=== PATIENT | female | born 1950 | race Asian ===

== ENCOUNTER 2020-09-13 17:52 | Inpatient (IN) | payer MEDICARE ==
[2020-09-13 18:16] VITALS: BMI 30.2
[2020-09-13] MEDS ORDERED: SODIUM CHLORIDE 1,000 ML IV STA (18:43)
[2020-09-13 19:33] LABS: EOS % 13.4 % (0-4.5); HEMATOCRIT 39.6 % (32.4-45.2); HEMOGLOBIN 12.8 GM/dL (10.7-15.3); LYMPH % 44.6 % (8-40); MCH 24.4 pg (25.7-33.7); MCHC 32.3 g/dl (32.0-36.0); MEAN CELL VOLUME 75.6 fl (80-96); MEAN PLT VOLUME 8.1 fl (7.5-11.1); MONO % 5.7 % (3.8-10.2); NEUT % 35.3 % (42.8-82.8); PLATELET COUNT 273 10^3/uL (134-434); RBC 5.23 M/mm3 (3.60-5.2); RDW 17.1 % (11.6-15.6); VENOUS BASE EXCESS -0.7 mmol/L (-2-2); VENOUS O2 SATURATION 70.2 % (70-80); VENOUS PCO2 45.6 mmHg (38-52); VENOUS PH 7.358 (7.310-7.410); WHITE BLOOD COUNT 9.9 K/mm3 (4.0-10.0)
[2020-09-13 20:06] LABS: PH,URINE 5.5 (5.0-8.0); URINE APPEARANCE CLEAR; URINE BILIRUBIN NEGATIVE (NEGATIVE); URINE COLOR YELLOW; URINE GLUCOSE (UA) 3+ (NEGATIVE); URINE KETONE NEGATIVE (NEGATIVE); URINE LEUK ESTERASE NEGATIVE (NEGATIVE); URINE NITRITE NEGATIVE (NEGATIVE); URINE PROTEIN NEGATIVE (NEGATIVE); URINE UROBILINOGEN 0.2 mg/dL (0.2-1.0)
[2020-09-13 20:15] LABS: ALBUMIN 3.8 g/dl (3.4-5.0)
[2020-09-13 20:16] LABS: CHLORIDE 105 mmol/L (98-107); SODIUM 139 mmol/L (136-145)
[2020-09-13 20:18] LABS: PHOSPHOROUS 3.8 mg/dL (2.5-4.9)
[2020-09-13 20:20] LABS: BILIRUBIN,TOTAL 0.2 mg/dL (0.2-1); TOT PROT 7.6 g/dl (6.4-8.2)
[2020-09-13 20:21] LABS: ALK PHOS 110 U/L (45-117)
[2020-09-13 20:22] LABS: ANION GAP 9 MMOL/L (8-16); CALCIUM 9.1 mg/dL (8.5-10.1); CO2 24 mmol/L (21-32); GLUCOSE,RANDOM 181 mg/dL (74-106); MAGNESIUM 2.2 mg/dL (1.8-2.4)
[2020-09-13 20:35] LABS: SGPT/ALT 29 U/L (13-61)
[2020-09-13 20:43] LABS: SGOT/AST 31 U/L (15-37)
[2020-09-13 20:55] LABS: N-TERMINAL BNP 34.5 pg/ml (5-125)
[2020-09-14] MEDS ORDERED: ACETAMINOPHEN 325 MG TABLET (FP) ONE (06:23)
[2020-09-14 06:26] LABS: BASO % 1.1 % (0-2.0); EOS % 15.7 % (0-4.5); HEMATOCRIT 39.2 % (32.4-45.2); HEMOGLOBIN 12.2 GM/dL (10.7-15.3); LYMPH % 43.1 % (8-40); MCH 23.9 pg (25.7-33.7); MCHC 31.1 g/dl (32.0-36.0); MEAN CELL VOLUME 76.9 fl (80-96); MEAN PLT VOLUME 8.3 fl (7.5-11.1); MONO % 7.1 % (3.8-10.2); PLATELET COUNT 237 10^3/uL (134-434); RBC 5.09 M/mm3 (3.60-5.2); WHITE BLOOD COUNT 8.2 K/mm3 (4.0-10.0)
[2020-09-14] MEDS: ACETAMINOPHEN 325 MG TABLET (FP) PO PRN ×2 (06:26)
[2020-09-14] MEDS ORDERED: traMADol HCL 50 MG TABLET PO ONE (06:31)
[2020-09-14] MEDS ORDERED: traMADol HCL 50 MG TABLET ONE (06:45)
[2020-09-14 06:51] LABS: CALCIUM 8.6 mg/dL (8.5-10.1)
[2020-09-14 06:52] LABS: ALBUMIN 3.3 g/dl (3.4-5.0); BLOOD UREA NITROGEN 22.5 mg/dL (7-18)
[2020-09-14 06:56] LABS: BILIRUBIN,TOTAL 0.3 mg/dL (0.2-1)
[2020-09-14 06:57] LABS: TOT PROT 6.6 g/dl (6.4-8.2)
[2020-09-14] MEDS: LEVOTHYROXINE NA 100 MCG TABLET (FP) PO SCH (07:55)
[2020-09-14] MEDS ORDERED: LEVOTHYROXINE NA 25 MCG TABLET (FP) ONE (07:56)
[2020-09-14] MEDS: INSULIN SLIDING SCALE (NOVOLOG) 1 VIAL SQ SCH ×4 (08:02→21:05)
[2020-09-14] MEDS ORDERED: INSULIN (NOVOLOG) ASPART 100 UNITS/ML 10ML VIAL ONE (11:45)
[2020-09-14] MEDS: ASPIRIN 81 MG CHEWABLE TABLETS PO SCH (12:23)
[2020-09-14] MEDS: LOSARTAN POTASSIUM 50 MG TABLET PO SCH (12:23)
[2020-09-14] MEDS: NEBIVOLOL 5 MG TABLET (FP) PO SCH (13:58)
[2020-09-14] MEDS: GABAPENTIN 100 MG CAPSULE PO SCH ×2 (13:59→21:03)
[2020-09-14] MEDS: traMADol HCL 50 MG TABLET PO PRN (15:04)
[2020-09-14] MEDS ORDERED: ATORVASTATIN CA 80 MG TABLET (FP) PO SCH (22:00)
[2020-09-15] MEDS: GABAPENTIN 100 MG CAPSULE PO SCH ×2 (05:53→15:15)
[2020-09-15] MEDS: traMADol HCL 50 MG TABLET PO PRN (05:53)
[2020-09-15] MEDS: INSULIN SLIDING SCALE (NOVOLOG) 1 VIAL SQ SCH ×3 (05:59→17:42)
[2020-09-15] MEDS: LEVOTHYROXINE NA 100 MCG TABLET (FP) PO SCH (05:59)
[2020-09-15] MEDS ORDERED: INSULIN (LEVEMIR) 100 UNITS/ML UNITS SQ SCH (07:00)
[2020-09-15] MEDS ORDERED: sitaGLIPtin PHOSPHATE 50 MG TABLET PO SCH (07:00)
[2020-09-15] MEDS ORDERED: PT OWN MED DRAWER 7, Y5N ONE (09:29)
[2020-09-15] MEDS: ASPIRIN 81 MG CHEWABLE TABLETS PO SCH (10:17)
[2020-09-15] MEDS: NEBIVOLOL 5 MG TABLET (FP) PO SCH (11:59)
[2020-09-15] MEDS: LOSARTAN POTASSIUM 50 MG TABLET PO SCH (11:59)
[2020-09-15 18:07] VITALS: BP 153/78; PULSE 67; TEMP 97.5
== END 2020-09-15 18:13 | disposition home or self-care (01) | DRG 420 ==
LOC: JER 17:52 → JERBED 22:24 → OBSVTOIN 22:24 → INTOOBSV 22:24 → J5S 09-14 09:21
PROVIDERS: ADMIT Internal Medicine; ATTEND Family Medicine
DX: E11.65 Type 2 diabetes mellitus with hyperglycemia (principal); E11.42 Type 2 diabetes mellitus with diabetic polyneuropathy; I25.10 Atherosclerotic heart disease of native coronary artery without angina pectoris; I10 Essential (primary) hypertension; E78.5 Hyperlipidemia, unspecified; E03.9 Hypothyroidism, unspecified; Z95.5 Presence of coronary angioplasty implant and graft
CPT/HCPCS: 36415; 71045-TC-FY; 71250-TC; 80053; 81003; 82010; 82550; 82803; 82962; 83036; 83735; 83880; 84100; 84443; 84484; 85025; 87086; 93005; 93010; 93306-TC; 94761; 99285-25; C9803; U0003; U0005